=== PATIENT | female | born 1955 | race African-American/Black ===

== ENCOUNTER 2017-06-27 09:27 | Outpatient (CLI) | payer MEDICARE, BC | END 2017-06-27 09:28 | disposition home or self-care (01) | LOC: BICMAMMO 09:27 | PROVIDERS: ATTEND Family Medicine | DX: Z12.31 Encounter for screening mammogram for malignant neoplasm of breast (principal) | CPT/HCPCS: 77063; 77067 ==

== ENCOUNTER 2017-07-09 07:44 | Outpatient (CLI) | payer MEDICARE, BC | END 2017-07-09 07:45 | disposition home or self-care (01) | LOC: BICULT 07:44 | PROVIDERS: ATTEND Family Medicine | DX: R92.8 Other abnormal and inconclusive findings on diagnostic imaging of breast (principal) ==

== ENCOUNTER 2019-02-04 10:02 | Observation (INO) | payer MEDICARE ==
[2019-02-04 11:07] LABS: #Lymphocytes 1.1 thou/uL (1.20-3.40); #Monocytes 0.8 thou/uL (0.11-0.59); #Neutrophils 7.5 thou/uL (1.40-6.50); %Basophils 0.2 % (0.0-1.0); %Eosinophils 0.5 % (0.0-10.0); %Lymphocytes 11.9 % (21.0-51.0); %Monocytes 8.1 % (0.0-10.0); %Neutrophils 79.2 % (42.0-75.0); Hemoglobin 11.5 g/dL (12.0-16.0); Mean Corpuscular HGB CONC 34.2 g/dL (32.0-36.0); Mean Corpuscular Hemoglobin 33.1 pg (27.0-31.0); Mean Corpuscular Volume 96.7 fL (78.0-98.0); Platelet Count 361 thou/uL (130-400); RBC Distribution Width 11.7 % (11.5-14.5); Red Blood Cell (RBC) Count 3.49 mill/uL (4.20-5.40); White Blood Cell (WBC) Count 9.4 thou/uL (4.8-10.8)
[2019-02-04 11:16] LABS: ALT (SGPT) 17 U/L (8-55); AST (SGOT) 53 U/L (5-34); Albumin 3.6 g/dL (3.4-4.8); Alkaline Phosphatase 121 U/L (40-110); Anion Gap 20 mmol/L (10-20); BUN (Urea Nitrogen) 8 mg/dL (9.8-20.1); Bilirubin, Total 0.8 mg/dL (0.2-1.2); Calc. Creatinine Clearance 0 mL/min (70-130); Carbon Dioxide 28 mmol/L (23-31); Chloride 92 mmol/L (98-107); Estimated GFR-MDRD 79; Globulin 3.4 g/dL (2.4-3.5); Glucose 98 mg/dL (80-115); Sodium 138 mmol/L (136-145)
[2019-02-04 11:23] LABS: Potassium 2.4 mmol/L (3.5-5.1)
--- NOTE | 2019-02-04 11:48 | RAD ---
EXAM: Chest one view: HISTORY: Syncope COMPARISON: 06/20/2015 FINDINGS: Heart size: Minimally enlarged. Lungs: Clear of acute process. No evidence for pneumonia, pleural effusion, acute edema, or pneumothorax, or other significant acute process. IMPRESSION: No significant acute intrathoracic disease. Stable exam.
[2019-02-04] MEDS ORDERED: Potassium Chloride 20 MEQ TAB ONE (12:33)
[2019-02-04] MEDS ORDERED: Magnesium 2 GM/50 ML BAG (IN WATER) ONE (12:33)
[2019-02-04] MEDS ORDERED: Potassium Chloride 40 MEQ in Sodium Chloride 0.9% 250 ML 250 ML IVPB SCH (12:45)
[2019-02-04] MEDS ORDERED: Acetaminophen 325 MG TAB PO PRN (14:04)
[2019-02-04] MEDS ORDERED: Ondansetron ODT 4 MG TAB PO PRN (14:04)
[2019-02-04] MEDS ORDERED: Ondansetron PF 4 MG/2 ML Vial IVP PRN (14:04)
[2019-02-04] MEDS ORDERED: Aspirin 81 mg Enteric Coated Tablet PO SCH (14:15)
--- NOTE | 2019-02-04 15:08 | CT ---
CT Brain WO Con: 02/04/2019 2:35 PM CLINICAL HISTORY: Syncope, collapse. COMPARISON: None. FINDINGS: Hemorrhage: None. Ventricular system: Normal in size and morphology for the patient's age. Cerebral parenchyma: Normal Midline shift: None. Mass: No mass effect. Calvarium: Normal. Visualized Paranasal sinuses: Clear. IMPRESSION: No acute intracranial abnormalities.
[2019-02-04 15:21] LABS: Bacteria/HPF 2+ HPF (None Seen); Bilirubin Negative (Negative); Blood, Urine Negative (Negative); Clarity Turbid (Clear); Glucose, Urine (Dipstick) Normal (Negative); Leukocyte 500 Leu/uL (Negative); Nitrite Negative (Negative); Protein, Urine (Dipstick) 30 mg/dL (Neg-Trace); WBC/HPF 21-50 HPF (0-3)
[2019-02-04 15:31] LABS: Yeast-Budding None Seen HPF (None Seen)
[2019-02-04 15:42] VITALS: BMI 33.0
[2019-02-04 15:51] LABS: Troponin I Less than 0.010 ng/mL (< 0.028)
--- NOTE | 2019-02-04 16:07 | HP ---
PRIMARY CARE PHYSICIAN: Dr. Mark Min. CHIEF COMPLAINT: Syncope and collapse. HISTORY OF PRESENT ILLNESS: A 63-year-old female with past medical history significant for hypertension, hyperlipidemia, tobacco abuse disorder, who presents to the ER due to complaint of syncope and collapse. The patient reportedly bent over to get something from her fridge and subsequently fell backwards. She reportedly felt lightheadedness prior to passing out. She also admitted to intermittent orthostatic dizziness prior to the episode. The patient is accompanied by her sisters who told me in confidence that the patient has been drinking way lot for several years and barely eats. The patient herself admitted to poor oral intake due to easy fullness. She also admitted to drinking at least 10 whiskey drinks daily. She admitted to frequent urination, but denied nausea, vomiting, hematemesis, hematochezia, change in bowel habit, hematuria, abdominal pain, chest pain, palpitations, fever, chills, or cough. She reported weight loss of about 30 pounds in the last one year, dropping from her usual 257 pounds to 222. She admitted to bilateral lower extremity edema, which has improved currently. She denied problems swallowing or regurgitation or pain with swallowing. The patient was recently treated in December 2018 for urinary tract infection with cefdinir, which she has completed. She admitted to headache and some dizziness, but denied visual changes or focal weakness or gait instability. PAST MEDICAL HISTORY: 1. Hypertension. 2. Hyperlipidemia. 3. Anxiety with depression. 4. Chronic alcohol abuse. 5. Degenerative joint disease. 6. Obstructive sleep apnea. 7. Seasonal allergy. 8. Chronic maxillary sinusitis. 9. Peripheral neuropathy. 10. Peripheral vascular disease. PAST SURGICAL HISTORY: 1. Left hip replacement. 2. Left knee arthroscopy. 3. section. FAMILY HISTORY: Significant for heart disease and hypertension in mother. Sister had diabetes and kidney disease. Uncle had lung cancer. SOCIAL HISTORY: The patient lives alone. The sisters live around her. She drinks heavily at least 10 whiskey drinks per day for a long period. Denied smoking. There is history of tobacco chewing. The patient wants to be full code. Daughter is the surrogate decision maker. ALLERGIES: 1. BETA CHAO SAID TO CAUSE RASH. 2. HYDROCHLOROTHIAZIDE. CURRENT HOME MEDICATIONS: 1. Aspirin 81 mg p.o. daily. 2. Lasix 40 mg daily as needed. 3. Flonase 2 sprays to both nose daily. 4. Clonidine 0.1 mg daily in the morning. 5. Sertraline 50 mg once a day. 6. Losartan 100 mg p.o. daily. 7. Amlodipine 5 mg once a day at bedtime. 8. Simvastatin 40 mg once daily in the evening. REVIEW OF SYSTEMS: A 12-point review of system performed was negative other than pertinent positives and negatives included in the history of present illness. PHYSICAL EXAMINATION: VITAL SIGNS: Initial vitals on presentation to the ER showed BP 133/60, pulse 99, respiratory rate 18, temperature 98.1, pain 5/10, SpO2 99% on room air. Most current vitals showed BP 127/73, pulse 89, respiratory rate 19, temperature 98.2, pain 0/10, SpO2 97% on room air. GENERAL: Female, in no obvious distress. Afebrile. Anicteric. Acyanotic. HEENT: Normocephalic, atraumatic. Oral mucosa is moist. NECK: Supple. Nontender with good range of motion. No obvious masses or lymphadenopathy appreciated. CARDIOVASCULAR: Regular rhythm and rate with normal. heart sounds 1 and 2. RESPIRATORY: Fair air entry bilaterally with no crackle or rhonchi or use of accessory muscles. GI: Full, obese, soft with mild epigastric and bilateral lower quadrant tenderness. Bowel sound is normoactive. EXTREMITIES: Mild bilateral leg edema noted. No erythema or bruise is noted. BOOM BOSS: Conscious, alert, oriented x3 with appropriate mental status. Cranial nerves 2 through 12 are grossly intact. The patient moves all extremities with symmetric power. Sensation is grossly normal to gross touch. DIAGNOSTIC DATA: CBC showed WBC count of 9.4, hemoglobin of 18.5, MCV of 96.7, platelet of 361. Neutrophil count is 79% while lymphocyte count is 11.9. CMP showed sodium 138, potassium 2.4, chloride 92, CO2 of 28, BUN 8, anion gap 20, creatinine 0.87, glucose 98, calcium 9.0, magnesium 1.8, total bilirubin 0.8, AST 53, ALT 17, alkaline phosphatase 121, total protein 7.0, albumin 3.6, globulin 3.4. Initial troponin is less than 0.010. EKG showed normal sinus rhythm with rate of 90. No obvious ST elevation was appreciated. There is also no obvious T-wave abnormalities. Chest x-ray performed today showed minimally enlarged heart size with clear lungs. There is no evidence of pneumonia, pleural effusion, edema, or pneumothorax. ASSESSMENT: 1. Syncope and collapse. This is felt to be vasovagal and/or orthostatic syncope. The patient with chronic alcohol abuse, admitted to intermittent dizziness especially on standing. She is also on diuretic and admitted urinary frequency. Oral intake has been minimal. 2. Severe hypokalemia: Due to poor oral intake, diuretic therapy and alcohol-induced diuresis. 3. Chronic alcohol abuse with high risk for withdrawal symptoms. 4. Unintentional weight loss of about 30 pounds in the last one year: Due to poor oral intake and chronic alcohol abuse. 5. Malnutrition: Due to alcohol abuse and poor oral intake. 6. Bilateral leg edema: The patient may have chronic diastolic heart failure given longstanding history of hypertension. 7. Hypertension. 8. Hyperlipidemia. 9. Easy fascitis: Most likely due to alcohol abuse. Occult neoplasm is a concern given weight loss. PLAN: 1. Replete serum potassium with potassium chloride. 2. We will also start magnesium supplementation. 3. Dietary rehabilitation will be commenced. We will also consult dietitian. 4. We will rule out acute myocardial infarction with serial troponin. 5. We will also get carotid Doppler as well as echocardiogram. 6. We will also get orthostatic vitals. The patient on sitting up from lying position was noted to have acute increase in heart rate from 80s to 120s. We will start gentle IV fluid therapy as the patient is deemed to be volume contracted. 7. We will also get CT scan of the head given trauma to rule out acute brain injury or trauma. We will repeat CMP and CBC in the morning. 8. We will also start alcohol withdrawal protocol. 9. We will start multivitamin, folic acid and thiamine supplementation. 10. DVT prophylaxis with Lovenox will be commenced as well as GI bleeding prophylaxis. 11. Code status: Full code. The patient's daughter Pebbles is the surrogate decision maker. Job ID: [id number]
[2019-02-04] MEDS: Lactated Ringer's 1,000 ML IV SCH ×2 (16:50→21:48)
[2019-02-04] MEDS: Potassium Chloride 20 MEQ TAB PO SCH ×2 (16:50→21:48)
--- NOTE | 2019-02-04 18:32 | ULT ---
CAROTID DOPPLER: 02/04/19 PROVIDED CLINICAL HISTORY: Syncope. FINDINGS: Miller scale and color Doppler sonography with spectral analysis was performed of the extracranial renee tid system. There is no evidence for a hemodynamically significant internal carotid artery stenosis b y peak systolic velocity or ratio criteria. The vertebral arteries are not discretely identified. IMPRESSION: No sonographic evidence for a hemodynamically significant internal carotid artery stenosis. POS: ABI
[2019-02-04 21:40] LABS: Troponin I 0.033 ng/mL (< 0.028)
[2019-02-04] MEDS: Famotidine 20 MG TAB PO SCH (21:48)
[2019-02-04] MEDS: Atorvastatin Calcium 20 MG TAB PO SCH (21:48)
[2019-02-04] MEDS: Famotidine/PF 20 mg/2ml Vial SLOW IVP SCH (21:48)
[2019-02-05] MEDS: Potassium Chloride 20 MEQ TAB PO SCH (03:43)
[2019-02-05 06:51] LABS: #Eosinphils 0.1 thou/uL (0.0-0.7); #Lymphocytes 1.3 thou/uL (1.20-3.40); #Monocytes 0.5 thou/uL (0.11-0.59); %Basophils 0.3 % (0.0-1.0); %Eosinophils 1.2 % (0.0-10.0); %Lymphocytes 22.3 % (21.0-51.0); %Monocytes 7.9 % (0.0-10.0); %Neutrophils 68.3 % (42.0-75.0); Hemoglobin 9.8 g/dL (12.0-16.0); Mean Corpuscular HGB CONC 34.8 g/dL (32.0-36.0); Mean Corpuscular Hemoglobin 34.4 pg (27.0-31.0); Mean Platelet Volume 6.6 fL (7.4-10.4); Platelet Count 272 thou/uL (130-400); RBC Distribution Width 11.8 % (11.5-14.5); Red Blood Cell (RBC) Count 2.85 mill/uL (4.20-5.40); White Blood Cell (WBC) Count 5.9 thou/uL (4.8-10.8)
[2019-02-05 07:13] LABS: ALT (SGPT) 11 U/L (8-55); AST (SGOT) 41 U/L (5-34); Albumin 2.7 g/dL (3.4-4.8); Alkaline Phosphatase 90 U/L (40-110); Anion Gap 15 mmol/L (10-20); BUN (Urea Nitrogen) 8 mg/dL (9.8-20.1); Bilirubin, Total 0.6 mg/dL (0.2-1.2); Calc. Creatinine Clearance 116 mL/min (70-130); Carbon Dioxide 26 mmol/L (23-31); Chloride 100 mmol/L (98-107); Estimated GFR-MDRD Greater than 90; Glucose 102 mg/dL (80-115); Potassium 3.2 mmol/L (3.5-5.1); Protein, Total 5.7 g/dL (6.0-8.3); Sodium 138 mmol/L (136-145)
[2019-02-05] MEDS: Enoxaparin Sodium 40 MG/0.4 ML SYRINGE SC SCH (08:43)
[2019-02-05] MEDS: Folic Acid 1 MG TAB PO SCH (08:44)
[2019-02-05] MEDS: Multivitamin W/ Minerals 1 TAB PO SCH (08:44)
[2019-02-05] MEDS: Aspirin 81 mg Enteric Coated Tablet PO SCH (08:44)
[2019-02-05] MEDS: Thiamine 100 MG TAB PO SCH (08:45)
[2019-02-05] MEDS: Cefdinir 300 MG CAP PO SCH ×2 (08:45→21:01)
[2019-02-05] MEDS: Famotidine 20 MG TAB PO SCH ×2 (08:47→21:01)
[2019-02-05] MEDS: Famotidine/PF 20 mg/2ml Vial SLOW IVP SCH ×2 (08:53→21:04)
[2019-02-05] MEDS ORDERED: Prevnar 13-Val Conj/PF 0.5 ML SYRINGE IM ONE (09:00)
[2019-02-05] MEDS ORDERED: cefTRIAXone\\ROCEPHIN 1 GM in Sodium Chloride 0.9% 100 ML IVPB SCH (09:00)
[2019-02-05] MEDS ORDERED: Potassium Chloride 20 MEQ TAB PO SCH (09:00)
[2019-02-05] MEDS ORDERED: FLU VACC TS2019-20(65YR UP)/PF 180 MCG/0.5 ML SYRINGE IM ONE (09:00)
[2019-02-05 10:01] LABS: Troponin I Less than 0.010 ng/mL (< 0.028)
[2019-02-05] MEDS: Lactated Ringer's 1,000 ML IV SCH (11:29)
[2019-02-05] MEDS: Multivitamins, Adult 10 ML, Folic Acid 1 MG, Thiamine HCl 100 MG in Dextrose 5 %-0.45 %... IV SCH (11:29)
[2019-02-05] MEDS: Atorvastatin Calcium 20 MG TAB PO SCH (21:01)
[2019-02-06 08:00] VITALS: TEMP 98.5
[2019-02-06 08:01] VITALS: BP 126/72
[2019-02-06] MEDS ORDERED: Ergocalciferol 1.25 MG(50,000 UNITS) CAP PO SCH (09:00)
[2019-02-06] MEDS: Aspirin 81 mg Enteric Coated Tablet PO SCH (09:53)
[2019-02-06] MEDS: Multivitamin W/ Minerals 1 TAB PO SCH (09:53)
[2019-02-06] MEDS: Cefdinir 300 MG CAP PO SCH (09:53)
[2019-02-06] MEDS: Famotidine 20 MG TAB PO SCH (09:53)
[2019-02-06] MEDS: Folic Acid 1 MG TAB PO SCH (09:53)
[2019-02-06] MEDS: Enoxaparin Sodium 40 MG/0.4 ML SYRINGE SC SCH (09:54)
[2019-02-06] MEDS: Famotidine/PF 20 mg/2ml Vial SLOW IVP SCH (09:54)
[2019-02-06] MEDS: Thiamine 100 MG TAB PO SCH (09:54)
[2019-02-06] MEDS: Multivitamins, Adult 10 ML, Folic Acid 1 MG, Thiamine HCl 100 MG in Dextrose 5 %-0.45 %... IV SCH (10:31)
--- NOTE | 2019-02-06 10:49 | PDOC.HOSPP ---
- Subjective Encounter Date: 02/05/19 Encounter Time: 10:30 Subjective: pt up in bed wants to go home. - Objective Vital Signs & Weight: Vital Signs (12 hours) Temp Pulse Resp BP BP BP BP 02/06/19 08:30 126/72 02/06/19 08:00 120 H 147/73 H 126/72 02/06/19 07:59 98.5 F 91 20 02/06/19 04:00 97.8 F 88 16 144/55 H 144/55 H 02/05/19 23:40 98.5 F 89 16 130/60 130/60 BP Pulse Ox 02/06/19 08:30 02/06/19 08:00 02/06/19 07:59 139/67 90 L 02/06/19 04:00 97 02/05/19 23:40 93 L Weight Weight 210 lb 11.2 oz I&O: 02/05/19 02/06/19 02/07/19 06:59 06:59 06:59 Intake Total 1790 1838 240 Output Total 1400 1500 Balance 390 338 240 Result Diagrams: 02/05/19 06:33 02/05/19 06:33 Hospitalist ROS - Review of Systems Respiratory: denies: cough, dry, shortness of breath, hemoptysis, SOB with excertion, pleuritic pain, sputum, wheezing, other Cardiovascular: denies: chest pain, palpitations, orthopnea, paroxysmal noc. dyspnea, edema, light headedness, other Gastrointestinal: denies: nausea, vomiting, abdominal pain, diarrhea, constipation, melena, hematochezia, other - Medication Medications: Active Medications Generic Name Dose Route Start Last Admin Trade Name Endyq PRN Reason Stop Dose Admin Aspirin 81 mg 02/05/19 09:00 02/06/19 09:53 Ecotrin PO 81 mg DAILY CLAIRE Administration Atorvastatin Calcium 20 mg 02/04/19 21:00 02/05/19 21:01 Lipitor PO 20 mg HS CLAIRE Administration Cefdinir 300 mg 02/05/19 09:00 02/06/19 09:53 Omnicef PO 300 mg BID CLAIRE Administration Cholecalciferol 1,000 units 02/06/19 09:00 02/06/19 09:53 Vitamin D3 PO 1,000 units DAILY CLAIRE Administration Enoxaparin Sodium 40 mg 02/05/19 09:00 02/06/19 09:54 Lovenox SC 40 mg 0900 CLAIRE Administration Ergocalciferol 1.25 mg 02/06/19 09:00 02/06/19 09:53 Drisdol PO 1.25 mg Q7DAYS CLAIRE Administration Famotidine 20 mg 02/04/19 21:00 02/06/19 09:54 Pepcid SLOW IVP Not Given Q12HR CLAIRE Famotidine 20 mg 02/04/19 21:00 02/06/19 09:53 Pepcid PO 20 mg BID CLAIRE Administration Folic Acid 1 mg 02/05/19 09:00 02/06/19 09:53 Folvite PO 1 mg DAILY CLAIRE Administration Multivitamins 10 ml/ Folic 1,011.2 mls @ 100 mls/hr 02/05/19 10:30 02/06/19 10:31 Acid 1 mg/ Thiamine HCl 100 mg IV Not Given / Dextrose/Sodium Chloride Q24HR CLAIRE Iron/Minerals/Multivitamins 1 tab 02/05/19 09:00 02/06/19 09:53 Theragran M PO 1 tab DAILY CLAIRE Administration Sertraline HCl 50 mg 02/05/19 09:00 02/06/19 09:53 Zoloft PO 50 mg QAM CLAIRE Administration Thiamine HCl 100 mg 02/05/19 09:00 02/06/19 09:54 Thiamine PO 100 mg DAILY CLAIRE Administration - Exam Heart: negative: RRR, no murmur, no gallops, no rubs, normal peripheral pulses, irregular, diminshed peripheral pulses, murmur present, II/IV, III/IV Respiratory: negative: CTAB, no wheezes, no rales, no ronchi, normal chest expansion, no tachypnea, normal percussion, rales, rhonchi, tachypneic, wheezes Gastrointestinal: negative: soft, non-tender, non-distended, normal bowel sounds , no palpable masses, no hepatomegaly, no splenomegaly, no bruit, no guarding, no rigidity, tender to palpation, distended, diminished bowl sounds, voluntary guarding Hosp A/P (1) Syncope Code(s): R55 - SYNCOPE AND COLLAPSE Status: Acute (2) Alcohol abuse Code(s): F10.10 - ALCOHOL ABUSE, UNCOMPLICATED Status: Acute (3) Dysgeusia Code(s): R43.2 - PARAGEUSIA Status: Acute - Plan pt is on ASE protocol. sister at bedside concern about her dysphagia but when i talked to her she states that she does not like the taste so she does not swallow. will get speech to see her. I did tell her sister that her current issue of dysphagia has been going on for several months not new. I recommenced her to see gi as outpatient. Pt is not sucidal and i did offer her if she wants rehab information about her alcohol abuse. she is currently not interested.
--- NOTE | 2019-02-06 18:12 | DIS ---
DATE OF ADMISSION: 02/04/2019 DATE OF DISCHARGE: 02/06/2019 CHIEF COMPLAINT: Syncope. HISTORY OF PRESENT ILLNESS: The patient is a 63-year-old female, who initially presented to the hospital with syncopal episode. The patient has a history of alcohol use and has not been drinking and eating very much. She did have a CT brain, which did not show any acute abnormalities. She also had a carotid Doppler, which was normal. She also had an echocardiogram, which indicated an EF of 60% to 65% with some diastolic dysfunction and mild tricuspid and mitral regurgitation. The patient was advised against alcoholic abstinence. She understands the risks. I did offer her for some psych consulting. The patient stated that she was not interested at this moment. I also asked her to provide me her daughter's number, so I can update her. This was per conversation with the patient's sister yesterday. However, the patient did not want me to call the daughter with her medical issues. I did speak with the patient in length, the patient does feel depressed; however, she is not suicidal. She states that she likes drinking alcohol because that alcohol makes her feel good. The patient does feel that she does have a significant amount of support within the community and with her family. The patient did complain of issues with swallowing. She states that she has been having these issues for some few years, several months now. This is not new. She has been only drinking Ensure. Upon further evaluation, the patient states that she has tasting issues, which is preventing her from swallowing the food. However, she is able to drink fluids without any problems and she was able to eat a few bites of meat loaf yesterday. She is able to swallow. She had no problems swallowing. It is just after talking with her, it seems more that she does not like the taste, which causes her inability to swallow. I also got Speech to see and evaluate her, who did not think any issues with oropharyngeal. I have recommended her to go to a GI, I have provided her with a cement contractor number to make an appointment for that. She has had some weight loss. However, as this could be attributed to alcohol, but regardless, she does need to follow up and get an endoscopy. She also was advised to follow up with her primary care. HOME MEDICATIONS: 1. Cefdinir. 2. Folic acid. 3. Vitamin D3. 4. Thiamine. 5. Losartan 100 mg daily. 6. Sertraline 50 mg daily. 7. Simvastatin 40 mg daily. 8. Norvasc 5 mg daily. 9. Aspirin 81 mg daily. 10. Lasix 40 mg daily. 11. Clonidine 0.1 p.o. daily. PHYSICAL EXAMINATION: VITAL SIGNS: Temperature of 98.5, 91, 20, 97% on room air, and 126/72. GENERAL: She is awake, alert, and oriented x3. There is no pain or distress. HEENT: Normocephalic and atraumatic. No lymphadenopathy noted. Pupils are equal and reactive to light. CVS: S1 and S2 present. No murmurs, rubs, or gallops. Again, she will be discharged home. She will follow up with the primary. DISCHARGE DIAGNOSES: 1. Syncope. 2. Low vitamin D level. 3. Alcohol abuse. 4. Dysphagia, most likely secondary to dysgeusia (abnormal taste). Job ID: [id number]
--- NOTE | 2019-02-07 14:42 | EKG ---
Test Reason : Blood Pressure : / mmHG Vent. Rate : 090 BPM Atrial Rate : 090 BPM P-R Int : 138 ms QRS Dur : 080 ms QT Int : 380 ms P-R-T Axes : 020 009 026 degrees QTc Int : 464 ms Normal sinus rhythm Possible Left atrial enlargement Inferior infarct , age undetermined Abnormal ECG Confirmed by EDWIN HENNING DO ([id number]), editor [place] ([id number]) on 02/07/2019 2:42:12 PM Referred By: Confirmed By:EDWIN HENNING DO
== END 2019-02-06 11:40 | disposition home or self-care (01) ==
LOC: ERS 10:02 → 2SW 15:40
PROVIDERS: ADMIT Internal Medicine Nephrology; ATTEND Internal Medicine Nephrology
DX: R55 Syncope and collapse (principal); F10.10 Alcohol abuse, uncomplicated; I10 Essential (primary) hypertension; E78.5 Hyperlipidemia, unspecified; E87.6 Hypokalemia; R63.4 Abnormal weight loss; E46 Unspecified protein-calorie malnutrition; F41.8 Other specified anxiety disorders; F32.9 Major depressive disorder, single episode, unspecified; M19.90 Unspecified osteoarthritis, unspecified site; G47.33 Obstructive sleep apnea (adult) (pediatric); F17.220 Nicotine dependence, chewing tobacco, uncomplicated; I73.9 Peripheral vascular disease, unspecified; G62.9 Polyneuropathy, unspecified; R60.0 Localized edema; R13.10 Dysphagia, unspecified; Z68.33 Body mass index [BMI] 33.0-33.9, adult; Z79.82 Long term (current) use of aspirin; Z79.899 Other long term (current) drug therapy; Z88.8 Allergy status to other drugs, medicaments and biological substances; Z96.642 Presence of left artificial hip joint
CPT/HCPCS: 36415; 36416; 70450; 71045; 80053; 81003; 81015; 82306; 82607; 83735; 84484; 85025; 87077; 87086; 87186; 93005; 93306; 93880; 96361; 96365; 96366; 96367; 96372; 96375; G0378; J1650; J3411; J3475; J3480; J7042; J7050; S0028

== ENCOUNTER 2019-03-27 08:29 | Outpatient (CLI) | payer MEDICARE ==
--- NOTE | 2019-03-27 09:11 | MMO ---
Bilateral MAMMO Bilat Screen [facility]. CLINICAL HISTORY: Patient is 63 years old and is seen for screening. The patient has no family history of breast cancer. The patient has no personal history of cancer. VIEWS: The views performed were: bilateral craniocaudal with tomosynthesis; bilateral mediolateral oblique with tomosynthesis; and left craniocaudal. FILMS COMPARED: The present examination has been compared to prior imaging studies performed at [facility] on 06/27/2017, at [facility] on 03/26/2013, and at [facility] on 03/26/2013. This study has been interpreted with the assistance of computer-aided detection. MAMMOGRAM FINDINGS: There are scattered fibroglandular densities. Finding 1: There are benign appearing calcifications seen in both breasts. Finding 2: There is an oval mass seen in the central region of the right breast. The mass was shown to be a cyst on ultrasound. There are no suspicious masses, suspicious calcifications, or new areas of architectural distortion. IMPRESSION: THERE IS NO MAMMOGRAPHIC EVIDENCE OF MALIGNANCY. A ROUTINE FOLLOW-UP MAMMOGRAM IN 1 YEAR IS RECOMMENDED. THE RESULTS OF THIS EXAM WERE SENT TO THE PATIENT. ACR BI-RADS Category 2 - Benign finding MAMMOGRAPHY NOTE: 1. A negative mammogram report should not delay a biopsy if a dominant of clinically suspicious mass is present. 2. Approximately 10% to 15% of breast cancers are not detected by mammography. 3. Adenosis and dense breasts may obscure an underlying neoplasm. Reported by: JAYLAN MO MD Electonically Signed: [id number]
== END 2019-03-27 08:30 | disposition home or self-care (01) ==
LOC: BICMAMMO 08:29
PROVIDERS: ATTEND Family Medicine
DX: Z12.31 Encounter for screening mammogram for malignant neoplasm of breast (principal)
CPT/HCPCS: 77063; 77067

== ENCOUNTER 2020-04-07 10:52 | Outpatient (CLI) | payer MEDICARE ==
--- NOTE | 2020-04-07 11:22 | MMO ---
Bilateral MAMMO Bilat Screen [facility]. CLINICAL HISTORY: Patient is 64 years old and is seen for screening. The patient has no family history of breast cancer. The patient has no personal history of cancer. VIEWS: The views performed were: bilateral craniocaudal with tomosynthesis and bilateral mediolateral oblique with tomosynthesis. FILMS COMPARED: The present examination has been compared to prior imaging studies performed at [facility] on 06/27/2017 and 03/27/2019, at [facility] on 03/26/2013, and at [facility] on 03/26/2013. This study has been interpreted with the assistance of computer-aided detection. MAMMOGRAM FINDINGS: There are scattered fibroglandular densities. There are stable benign appearing calcifications seen in both breasts. There are no suspicious masses, suspicious calcifications, or new areas of architectural distortion. IMPRESSION: THERE IS NO MAMMOGRAPHIC EVIDENCE OF MALIGNANCY. A ROUTINE FOLLOW-UP MAMMOGRAM IN 1 YEAR IS RECOMMENDED. THE RESULTS OF THIS EXAM WERE SENT TO THE PATIENT. ACR BI-RADS Category 2 - Benign finding MAMMOGRAPHY NOTE: 1. A negative mammogram report should not delay a biopsy if a dominant of clinically suspicious mass is present. 2. Approximately 10% to 15% of breast cancers are not detected by mammography. 3. Adenosis and dense breasts may obscure an underlying neoplasm. Reported by: WILLAM UPTON MD Electonically Signed: [id number]
== END 2020-04-07 10:53 | disposition home or self-care (01) ==
LOC: BICMAMMO 10:52
PROVIDERS: ATTEND Family Medicine
DX: Z12.31 Encounter for screening mammogram for malignant neoplasm of breast (principal)
CPT/HCPCS: 77063; 77067

== ENCOUNTER 2020-04-08 09:20 | Emergency (ER) | payer MEDICARE ==
[2020-04-08 14:01] LABS: SARS-CoV-2 MS2 Positive; SARS-CoV-2 N Gene Negative; SARS-CoV-2 S Gene Negative; SARS-CoV-2 by NAA Not Detected (NotDetected); SARS-CoV-2 orf1ab Negative
== END 2020-04-08 09:40 | disposition home or self-care (01) ==
LOC: ERS 09:20
DX: Z20.828 Contact with and (suspected) exposure to other viral communicable diseases (principal); K21.9 Gastro-esophageal reflux disease without esophagitis; I10 Essential (primary) hypertension; G47.30 Sleep apnea, unspecified; F17.220 Nicotine dependence, chewing tobacco, uncomplicated
CPT/HCPCS: 99282; U0003; 87635

== ENCOUNTER 2020-04-11 10:45 | Outpatient (CLI) | payer MEDICARE ==
--- NOTE | 2020-04-12 09:45 | RAD ---
MODIFIED BARIUM SWALLOW IN PRESENCE OF SPEECH THERAPIST: HISTORY: Dysphagia, feeding difficulties FINDINGS: No laryngeal penetration or aspiration is seen. No persistent pooling of contrast is seen in the valleculae or piriform sinuses. Please see recommendations of the speech therapist for further management.
== END 2020-04-11 10:46 | disposition home or self-care (01) ==
PROVIDERS: ATTEND Physician Assistant Medical
DX: R13.19 Other dysphagia (principal); K21.9 Gastro-esophageal reflux disease without esophagitis
CPT/HCPCS: 74230

== ENCOUNTER 2020-04-18 08:33 | Outpatient (CLI) | payer MEDICARE ==
--- NOTE | 2020-04-18 09:15 | ULT ---
Hepatic sonogram with duplex evaluation HISTORY: Abnormal liver function tests. Abdomen pain. FINDINGS: Gallbladder has a normal appearance without stone evident. Common duct is 0.5 cm. The liver is diffusely echogenic without focal mass or intrahepatic biliary dilatation. No free fluid . Spleen is 9.3 cm greatest length. Good color and spectral Doppler flow within the hepatic and splenic arteries. Portal venous flow is t owards the liver. Hepatic venous flow towards the IVC. IMPRESSION : No evidence of gallstones or biliary obstruction. Hepato-steatosis. No sonographic findings of portal venous hypertension.
== END 2020-04-18 08:34 | disposition home or self-care (01) ==
LOC: BICULT 08:33
PROVIDERS: ATTEND Physician Assistant Medical
DX: D64.9 Anemia, unspecified (principal); K59.00 Constipation, unspecified; R10.9 Unspecified abdominal pain; R13.19 Other dysphagia; R12 Heartburn; R94.5 Abnormal results of liver function studies; K76.0 Fatty (change of) liver, not elsewhere classified
CPT/HCPCS: 76705

== ENCOUNTER 2020-04-19 10:10 | Outpatient (CLI) | payer MEDICARE ==
--- NOTE | 2020-04-19 10:50 | RAD ---
XR Lumbar Spine 2 Or 3 View History: Dorsal soft tissue Comparison: None. Findings: Retained contrast throughout the colon. No acute fracture or malalignment. Chronic appearin g inferior endplate height loss of L1. No significant listhesis. Mild facet arthrosis L3-S1. Low-grade posterior L5/S1 degenerative disc space height loss. Impression: Relatively maintained lumbar spine for age. No acute osseous abnormality.
== END 2020-04-19 10:11 | disposition home or self-care (01) ==
LOC: BICRAD 10:10
PROVIDERS: ATTEND Family Medicine
DX: M54.9 Dorsalgia, unspecified (principal)
CPT/HCPCS: 72100

== ENCOUNTER 2020-06-30 09:12 | Outpatient (CLI) | payer MEDICARE ==
--- NOTE | 2020-06-30 10:00 | RAD ---
2 view chest: [06/30/2020] Comparison:04/19/2016 HISTORY: Anemia FINDINGS: There is no pneumothorax or pleural fluid and no focal consolidation or alveolar edema. Hea rt and mediastinal contours are unremarkable. There is atherosclerotic calcification of the aortic arch. IMPRESSION: No acute findings.
== END 2020-06-30 09:13 | disposition home or self-care (01) ==
LOC: BICRAD 09:12
PROVIDERS: ATTEND Family Medicine
DX: D64.9 Anemia, unspecified (principal)
CPT/HCPCS: 71046

== ENCOUNTER 2020-08-28 20:04 | Inpatient (IN) | payer MEDICARE ==
[2020-08-28 20:44] LABS: #Eosinphils 0.2 thou/uL (0.0-0.7); #Lymphocytes 1.4 thou/uL (1.20-3.40); #Monocytes 0.6 thou/uL (0.11-0.59); %Basophils 0.9 % (0.0-1.0); %Eosinophils 3.1 % (0.0-10.0); %Lymphocytes 26.3 % (21.0-51.0); %Monocytes 11.7 % (0.0-10.0); Hemoglobin 11.2 g/dL (12.0-16.0); Mean Corpuscular HGB CONC 32.8 g/dL (32.0-36.0); Mean Corpuscular Hemoglobin 33.3 pg (27.0-31.0); Mean Platelet Volume 8.3 fL (7.4-10.4); Platelet Count 271 thou/uL (130-400); RBC Distribution Width 16.8 % (11.5-14.5); Red Blood Cell (RBC) Count 3.37 mill/uL (4.20-5.40); White Blood Cell (WBC) Count 5.2 thou/uL (4.8-10.8)
[2020-08-28 21:06] LABS: ALT (SGPT) 18 U/L (8-55); AST (SGOT) 57 U/L (5-34); Albumin 3.7 g/dL (3.4-4.8); Alkaline Phosphatase 87 U/L (40-110); Anion Gap 13 mmol/L (10-20); BUN (Urea Nitrogen) 11 mg/dL (9.8-20.1); Bilirubin, Total 0.7 mg/dL (0.2-1.2); Calc. Creatinine Clearance 0 mL/min (70-130); Calcium 10.2 mg/dL (7.8-10.44); Carbon Dioxide 24 mmol/L (23-31); Chloride 106 mmol/L (98-107); Globulin 3.4 g/dL (2.4-3.5); Glucose 115 mg/dL (80-115); Magnesium 1.7 mg/dL (1.6-2.6); Potassium 3.2 mmol/L (3.5-5.1); Protein, Total 7.1 g/dL (5.8-8.1); Sodium 140 mmol/L (136-145)
[2020-08-28 21:48] LABS: Bacteria/HPF 1+ HPF (None Seen); Bilirubin Negative (Negative); Blood, Urine Negative (Negative); Clarity Turbid (Clear); Glucose, Urine (Dipstick) Normal (Negative); Ketone, Urine Negative (Negative); Leukocyte 75 Leu/uL (Negative); Nitrite Negative (Negative); Protein, Urine (Dipstick) 20 mg/dL (Neg-Trace); RBC/HPF 0-3 HPF (0-3); Specific Gravity, Urine 1.022 (1.002-1.036); Squamous Epithelial 0-3 HPF (0-3); Urobilinogen Normal mg/dL (Less than 2)
[2020-08-28] MEDS ORDERED: Thiamine HCl 200 MG/2 ML VIAL SLOW IVP SCH (22:45)
[2020-08-28] MEDS ORDERED: Aspirin 325 MG TAB ONE (23:53)
[2020-08-29 00:40] VITALS: BMI 32.4
[2020-08-29] MEDS ORDERED: Electrolyte Replacement Protocol 1 EACH FS SCH (01:00)
[2020-08-29] MEDS ORDERED: Acetaminophen 325 MG TAB PO PRN (01:00)
[2020-08-29] MEDS ORDERED: Magnesium 2 GM/50 ML 2 GM in Premix Bag 1 BAG IVPB SCH (01:00)
[2020-08-29] MEDS ORDERED: HYDROcodone/Acetaminophen 5/325 mg Tablet PO PRN (01:00)
[2020-08-29] MEDS ORDERED: Diazepam 5 MG TAB PO PRN (01:27)
[2020-08-29] MEDS ORDERED: Potassium Chloride 20 MEQ TAB PO SCH ×2 (01:30→08:45)
[2020-08-29] MEDS ORDERED: Diazepam 5 MG TAB PO SCH (01:30)
[2020-08-29] MEDS: cefTRIAXone\\ROCEPHIN 1 GM in Sodium Chloride 0.9% 100 ML IVPB SCH (03:33)
[2020-08-29 04:57] LABS: SARS-CoV-2 PCR by NAA Not Detected (NotDetected)
[2020-08-29 06:56] LABS: #Eosinphils 0.1 thou/uL (0.0-0.7); #Lymphocytes 1.4 thou/uL (1.20-3.40); #Monocytes 0.5 thou/uL (0.11-0.59); #Neutrophils 2.2 thou/uL (1.40-6.50); %Basophils 0.3 % (0.0-1.0); %Eosinophils 3.3 % (0.0-10.0); %Lymphocytes 33.4 % (21.0-51.0); %Monocytes 12.1 % (0.0-10.0); %Neutrophils 50.8 % (42.0-75.0); Mean Corpuscular HGB CONC 31.5 g/dL (32.0-36.0); Mean Corpuscular Hemoglobin 32.1 pg (27.0-31.0); Mean Platelet Volume 8.4 fL (7.4-10.4); Platelet Count 272 thou/uL (130-400); RBC Distribution Width 16.7 % (11.5-14.5); Red Blood Cell (RBC) Count 3.41 mill/uL (4.20-5.40); White Blood Cell (WBC) Count 4.3 thou/uL (4.8-10.8)
[2020-08-29 07:22] LABS: Anion Gap 14 mmol/L (10-20); BUN (Urea Nitrogen) 9 mg/dL (9.8-20.1); CK (CPK) 52 U/L (29-168); Calc. Creatinine Clearance 128 mL/min (70-130); Calcium 9.4 mg/dL (7.8-10.44); Carbon Dioxide 25 mmol/L (23-31); Chloride 106 mmol/L (98-107); Glucose 115 mg/dL (80-115); Magnesium 2.2 mg/dL (1.6-2.6); Potassium 3.1 mmol/L (3.5-5.1); Sodium 142 mmol/L (136-145)
[2020-08-29] MEDS: Sodium Chloride 0.9% 1,000 ML IV SCH ×2 (09:29→17:58)
[2020-08-29] MEDS: Enoxaparin Sodium 40 MG/0.4 ML SYRINGE SC SCH (09:30)
[2020-08-29] MEDS: Folic Acid 1 MG TAB PO SCH (09:30)
[2020-08-29] MEDS: Multivitamin W/ Minerals 1 TAB PO SCH (09:30)
[2020-08-29] MEDS: cloNIDine 0.1 MG TAB PO SCH ×2 (09:32→20:55)
[2020-08-29] MEDS: Amlodipine 5 MG TAB PO SCH ×2 (09:34→09:38)
[2020-08-29] MEDS: Multivitamins, Adult 10 ML, Folic Acid 1 MG in Dextrose 5 %-0.45 % NaCl 1,000 ML IV SCH (13:09)
[2020-08-29] MEDS: Aspirin 81 mg Enteric Coated Tablet PO SCH (20:55)
[2020-08-30] MEDS: cefTRIAXone\\ROCEPHIN 1 GM in Sodium Chloride 0.9% 100 ML IVPB SCH (03:10)
[2020-08-30] MEDS ORDERED: Diazepam 5 MG TAB PO PRN (04:00)
[2020-08-30] MEDS: Sodium Chloride 0.9% 1,000 ML IV SCH ×2 (10:02→20:41)
[2020-08-30] MEDS: Magnesium Oxide 400 MG TAB PO SCH (10:02)
[2020-08-30] MEDS: Thiamine 100 MG TAB PO SCH (10:03)
[2020-08-30] MEDS: Folic Acid 1 MG TAB PO SCH (10:03)
[2020-08-30] MEDS: Amlodipine 5 MG TAB PO SCH (10:03)
[2020-08-30] MEDS: Multivitamin W/ Minerals 1 TAB PO SCH (10:03)
[2020-08-30] MEDS: Enoxaparin Sodium 40 MG/0.4 ML SYRINGE SC SCH (10:05)
[2020-08-30] MEDS: cloNIDine 0.1 MG TAB PO SCH ×2 (10:05→20:42)
[2020-08-30] MEDS: Multivitamins, Adult 10 ML, Folic Acid 1 MG in Dextrose 5 %-0.45 % NaCl 1,000 ML IV SCH (10:15)
[2020-08-30] MEDS ORDERED: Potassium Chloride 20 MEQ TAB PO SCH (15:45)
[2020-08-30 17:27] LABS: Free T4 (Free Thyroxine) 0.86 ng/dL (0.70-1.48); Thyroid Stimulating Hormone 2.7429 uIU/mL (0.35-4.94)
[2020-08-30] MEDS: Aspirin 81 mg Enteric Coated Tablet PO SCH (20:42)
[2020-08-31] MEDS: Sodium Chloride 0.9% 1,000 ML IV SCH (02:31)
[2020-08-31] MEDS: Enoxaparin Sodium 40 MG/0.4 ML SYRINGE SC SCH (08:48)
[2020-08-31] MEDS: Multivitamin W/ Minerals 1 TAB PO SCH (08:48)
[2020-08-31] MEDS: Thiamine 100 MG TAB PO SCH (08:49)
[2020-08-31] MEDS: Potassium Chloride 20 MEQ TAB PO SCH (08:49)
[2020-08-31] MEDS: Folic Acid 1 MG TAB PO SCH (08:49)
[2020-08-31] MEDS: Amlodipine 5 MG TAB PO SCH (08:50)
[2020-08-31] MEDS: Cholecalciferol 1,000 UNITS (25 MCG) TAB PO SCH (08:50)
[2020-08-31] MEDS: cloNIDine 0.1 MG TAB PO SCH ×2 (08:50→20:31)
[2020-08-31] MEDS: Losartan 25 MG TAB PO SCH (08:50)
[2020-08-31] MEDS: Magnesium Oxide 400 MG TAB PO SCH (08:50)
[2020-08-31] MEDS: Multivitamins, Adult 10 ML, Folic Acid 1 MG in Dextrose 5 %-0.45 % NaCl 1,000 ML IV SCH (09:38)
[2020-08-31] MEDS ORDERED: Labetalol HCl 100 MG/20 ML VIAL SLOW IVP PRN (16:03)
[2020-08-31] MEDS ORDERED: hydrALAZINE 20 MG/ML VIAL SLOW IVP PRN (16:03)
[2020-08-31] MEDS: Aspirin 81 mg Enteric Coated Tablet PO SCH (20:30)
[2020-08-31] MEDS ORDERED: Atorvastatin Calcium 20 MG TAB PO SCH (21:00)
[2020-09-01] MEDS: Multivitamins, Adult 10 ML, Folic Acid 1 MG in Dextrose 5 %-0.45 % NaCl 1,000 ML IV SCH (10:43)
[2020-09-01] MEDS: Amlodipine 5 MG TAB PO SCH (10:43)
[2020-09-01] MEDS: Thiamine 100 MG TAB PO SCH (10:43)
[2020-09-01] MEDS: Potassium Chloride 20 MEQ TAB PO SCH (10:43)
[2020-09-01] MEDS: cloNIDine 0.1 MG TAB PO SCH (10:49)
[2020-09-01] MEDS: Multivitamin W/ Minerals 1 TAB PO SCH (10:50)
[2020-09-01] MEDS: Losartan 25 MG TAB PO SCH (10:50)
[2020-09-01] MEDS: Cholecalciferol 1,000 UNITS (25 MCG) TAB PO SCH (10:51)
[2020-09-01] MEDS: Magnesium Oxide 400 MG TAB PO SCH (10:51)
[2020-09-01] MEDS: Enoxaparin Sodium 40 MG/0.4 ML SYRINGE SC SCH (10:51)
[2020-09-01] MEDS: Folic Acid 1 MG TAB PO SCH (10:51)
[2020-09-01 11:36] VITALS: TEMP 98.2
[2020-09-01 15:26] VITALS: BP 174/83
[2020-09-02] MEDS ORDERED: Polyethylene Glycol 3350 17 GM Packet PO SCH (09:00)
== END 2020-09-01 16:30 | disposition home health service (06) | DRG 57 ==
LOC: ERS 20:04 → 2SE 23:10 → OBSVTOIN 08-30 15:38
PROVIDERS: ADMIT Student in an Organized Health Care Education/Training Program; ATTEND Internal Medicine
DX: G31.2 Degeneration of nervous system due to alcohol (principal); G93.40 Encephalopathy, unspecified; F10.239 Alcohol dependence with withdrawal, unspecified; N39.0 Urinary tract infection, site not specified; G62.1 Alcoholic polyneuropathy; Z20.822 Contact with and (suspected) exposure to COVID-19; I10 Essential (primary) hypertension; E78.5 Hyperlipidemia, unspecified; E55.9 Vitamin D deficiency, unspecified; N32.81 Overactive bladder; Z96.642 Presence of left artificial hip joint; F17.220 Nicotine dependence, chewing tobacco, uncomplicated; G93.89 Other specified disorders of brain; K21.9 Gastro-esophageal reflux disease without esophagitis; E78.00 Pure hypercholesterolemia, unspecified; F41.9 Anxiety disorder, unspecified; F32.9 Major depressive disorder, single episode, unspecified; Z88.8 Allergy status to other drugs, medicaments and biological substances; Z79.899 Other long term (current) drug therapy
CPT/HCPCS: 36415; 51701; 70450; 70551; 72148; 80048; 80053; 81003; 81015; 82533; 82550; 83735; 84439; 84443; 84481; 84484; 85025; 87086; 87635; 93005; 94760; 95712; 95819; 95957; 96365; 96372; 96375; G0378; J0360; J0696; J1650; J3411; J3475; J3490; J7042; U0003; U0005

== ENCOUNTER 2020-10-10 10:54 | Outpatient (CLI) | payer MEDICARE | END 2020-10-10 10:55 | disposition home or self-care (01) | LOC: BICRAD 10:54 | PROVIDERS: ATTEND Surgery | DX: S32.010D Wedge compression fracture of first lumbar vertebra, subsequent encounter for fracture with routine healing (principal) | CPT/HCPCS: 72100 ==

== ENCOUNTER 2020-12-25 22:02 | Inpatient (IN) | payer MEDICARE ==
[2020-12-25] MEDS ORDERED: Lorazepam 2 MG/ML VIAL ONE (23:09)
[2020-12-25] MEDS ORDERED: chlordiazePOXIDE HCl 25 MG CAP PO SCH (23:15)
[2020-12-25] MEDS ORDERED: Multivitamins, Adult 10 ML, Thiamine HCl 100 MG, Folic Acid 1 MG in Dextrose 5 %-0.45 %... IV SCH (23:30)
[2020-12-25] MEDS ORDERED: chlordiazePOXIDE HCl 25 MG CAP ONE (23:33)
[2020-12-26 02:33] VITALS: BMI 34.6
[2020-12-26] MEDS ORDERED: Lorazepam 2 MG/ML VIAL SLOW IVP PRN (03:07)
[2020-12-26] MEDS ORDERED: Diazepam 5 MG TAB PO PRN (03:07)
[2020-12-26] MEDS ORDERED: Lactated Ringer's 1,000 ML IV SCH (03:15)
[2020-12-26 04:37] LABS: SARS-CoV-2 NAA Rapid Test Not Detected (NotDetected)
[2020-12-26] MEDS ORDERED: hydrALAZINE 20 MG/ML VIAL SLOW IVP PRN (05:27)
[2020-12-26] MEDS ORDERED: Ondansetron PF 4 MG/2 ML Vial IVP PRN (05:38)
[2020-12-26] MEDS ORDERED: Acetaminophen 325 MG TAB PO PRN (05:38)
[2020-12-26 06:47] LABS: #Lymphocytes 1.4 thou/uL (1.20-3.40); #Monocytes 0.7 thou/uL (0.11-0.59); #Neutrophils 3.4 thou/uL (1.40-6.50); %Basophils 0.6 % (0.0-1.0); %Eosinophils 0.7 % (0.0-10.0); %Lymphocytes 25.4 % (21.0-51.0); %Monocytes 12.3 % (0.0-10.0); %Neutrophils 60.9 % (42.0-75.0); Mean Corpuscular HGB CONC 33.9 g/dL (32.0-36.0); Mean Corpuscular Hemoglobin 33.4 pg (27.0-31.0); Mean Corpuscular Volume 98.6 fL (78.0-98.0); Platelet Count 191 thou/uL (130-400); RBC Distribution Width 15.4 % (11.5-14.5); Red Blood Cell (RBC) Count 3.58 mill/uL (4.20-5.40); White Blood Cell (WBC) Count 5.6 thou/uL (4.8-10.8)
[2020-12-26 07:07] LABS: ALT (SGPT) 12 U/L (8-55); AST (SGOT) 16 U/L (5-34); Albumin 3.9 g/dL (3.4-4.8); Alkaline Phosphatase 76 U/L (40-110); Anion Gap 14 mmol/L (10-20); BUN (Urea Nitrogen) 7 mg/dL (9.8-20.1); Bilirubin, Total 1.2 mg/dL (0.2-1.2); Calc. Creatinine Clearance 131 mL/min (70-130); Calcium 9.8 mg/dL (7.8-10.44); Carbon Dioxide 28 mmol/L (23-31); Chloride 102 mmol/L (98-107); Globulin 3.6 g/dL (2.4-3.5); Glucose 99 mg/dL (80-115); Magnesium 1.7 mg/dL (1.6-2.6); Potassium 3.1 mmol/L (3.5-5.1); Protein, Total 7.5 g/dL (5.8-8.1); Sodium 141 mmol/L (136-145)
[2020-12-26] MEDS ORDERED: Potassium Chloride 20 MEQ TAB PO SCH (08:30)
[2020-12-26] MEDS ORDERED: Multivitamin W/ Minerals 1 TAB PO SCH (09:00)
[2020-12-26] MEDS ORDERED: Magnesium Oxide 400 MG TAB PO SCH (09:00)
[2020-12-26] MEDS ORDERED: Thiamine 100 MG TAB PO SCH (09:00)
[2020-12-26] MEDS ORDERED: Folic Acid 1 MG TAB PO SCH (09:00)
[2020-12-26] MEDS ORDERED: Thiamine 100 MG TAB ONE (09:31)
[2020-12-26] MEDS ORDERED: Folic Acid 1 MG TAB ONE (09:31)
[2020-12-26] MEDS ORDERED: Potassium Chloride 20 MEQ TAB ONE (09:31)
[2020-12-26 15:12] LABS: Syphilis Antibody Nonreactive (Nonreactive); Syphilis Antibody Index 0.04 S/CO (<1.00 Non-Reactive)
[2020-12-26 15:17] LABS: Amphetamine Not Detected (NotDetected); Barbiturates Screen Not Detected (NotDetected); Benzodiazepine Screen Detected (NotDetected); Cocaine Metabolite Screen Not Detected (NotDetected); Methadone Not Detected (NotDetected); Methamphetamine Not Detected (NotDetected); Opiate Screen Not Detected (NotDetected); Oxycodone Screen Not Detected (NotDetected); Phencyclidine (PCP) Not Detected (NotDetected); THC/Cannabinoid Screen Not Detected (NotDetected); Tricyclic Screen Not Detected (NotDetected)
[2020-12-26] MEDS: chlordiazePOXIDE HCl 25 MG CAP PO SCH (20:35)
[2020-12-26] MEDS: hydrALAZINE 25 MG TAB PO SCH (22:02)
[2020-12-26] MEDS: cloNIDine 0.1 MG TAB PO SCH (22:02)
[2020-12-27 06:50] LABS: #Eosinphils 0.1 thou/uL (0.0-0.7); #Lymphocytes 1.3 thou/uL (1.20-3.40); #Monocytes 0.6 thou/uL (0.11-0.59); %Eosinophils 1.2 % (0.0-10.0); %Lymphocytes 21.4 % (21.0-51.0); %Monocytes 9.4 % (0.0-10.0); Hemoglobin 12.3 g/dL (12.0-16.0); Mean Corpuscular HGB CONC 33.5 g/dL (32.0-36.0); Mean Corpuscular Hemoglobin 33.3 pg (27.0-31.0); Mean Corpuscular Volume 99.5 fL (78.0-98.0); Mean Platelet Volume 7.7 fL (7.4-10.4); Platelet Count 192 thou/uL (130-400); RBC Distribution Width 15.4 % (11.5-14.5); White Blood Cell (WBC) Count 5.9 thou/uL (4.8-10.8)
[2020-12-27 07:09] LABS: ALT (SGPT) 9 U/L (8-55); AST (SGOT) 16 U/L (5-34); Albumin 3.8 g/dL (3.4-4.8); Alkaline Phosphatase 74 U/L (40-110); Anion Gap 17 mmol/L (10-20); BUN (Urea Nitrogen) 11 mg/dL (9.8-20.1); Bilirubin, Total 1.3 mg/dL (0.2-1.2); Calc. Creatinine Clearance 108 mL/min (70-130); Calcium 9.9 mg/dL (7.8-10.44); Carbon Dioxide 24 mmol/L (23-31); Chloride 102 mmol/L (98-107); Globulin 3.7 g/dL (2.4-3.5); Glucose 103 mg/dL (80-115); Magnesium 1.7 mg/dL (1.6-2.6); Potassium 3.5 mmol/L (3.5-5.1); Protein, Total 7.5 g/dL (5.8-8.1); Sodium 139 mmol/L (136-145)
[2020-12-27] MEDS: cloNIDine 0.1 MG TAB PO SCH ×2 (08:14→15:10)
[2020-12-27] MEDS: hydrALAZINE 25 MG TAB PO SCH ×2 (08:15→15:09)
[2020-12-27] MEDS: chlordiazePOXIDE HCl 25 MG CAP PO SCH ×2 (08:15→15:10)
[2020-12-27] MEDS ORDERED: Magnesium Oxide 400 MG TAB PO SCH (09:00)
[2020-12-27] MEDS ORDERED: Folic Acid 1 MG TAB PO SCH (09:00)
[2020-12-27] MEDS ORDERED: Multivitamin W/ Minerals 1 TAB PO SCH (09:00)
[2020-12-27] MEDS ORDERED: Thiamine 100 MG TAB PO SCH (09:00)
[2020-12-27 16:06] VITALS: BP 154/95; TEMP 98.5
== END 2020-12-27 16:45 | disposition home or self-care (01) | DRG 897 ==
LOC: ERS 22:02 → ERHOLD 22:51 → T4-A 12-26 12:54
PROVIDERS: ADMIT Internal Medicine; ATTEND Student in an Organized Health Care Education/Training Program
DX: F10.239 Alcohol dependence with withdrawal, unspecified (principal); I10 Essential (primary) hypertension; E78.5 Hyperlipidemia, unspecified; G62.9 Polyneuropathy, unspecified; K21.9 Gastro-esophageal reflux disease without esophagitis; Z96.642 Presence of left artificial hip joint; E83.42 Hypomagnesemia; F41.9 Anxiety disorder, unspecified; F32.9 Major depressive disorder, single episode, unspecified; Z88.8 Allergy status to other drugs, medicaments and biological substances; Z79.82 Long term (current) use of aspirin; Z79.899 Other long term (current) drug therapy
CPT/HCPCS: 36415; 80053; 80306; 83735; 85025; 86780; 96365; 96366; 96375; J2060; J3411; J3475; J3490; J7042; U0002; U0005

== ENCOUNTER 2021-04-19 08:05 | Outpatient (CLI) | payer MEDICARE | END 2021-04-19 08:06 | disposition home or self-care (01) | LOC: BICMAMMO 08:05 | PROVIDERS: ATTEND Family Medicine | DX: Z12.31 Encounter for screening mammogram for malignant neoplasm of breast (principal) | CPT/HCPCS: 77063; 77067 ==

== ENCOUNTER 2021-09-25 07:50 | Inpatient (IN) | payer OTHER, MEDICARE ==
[2021-09-25] MEDS ORDERED: Ondansetron ODT 4 MG TAB PO PRN (23:46)
[2021-09-25] MEDS ORDERED: HYDROcodone/Acetaminophen 7.5/325 mg Tablet PO PRN (23:46)
[2021-09-25] MEDS ORDERED: Morphine 2 MG/ML VIAL SLOW IVP PRN (23:52)
[2021-09-26] MEDS: Sodium Chloride 0.9% 1,000 ML IV SCH ×3 (00:12→20:41)
[2021-09-26 01:17] VITALS: BMI 32.2
[2021-09-26] MEDS: Multivitamins, Adult 10 ML, Folic Acid 1 MG, Thiamine HCl 100 MG in Dextrose 5 %-0.45 %... IV SCH (04:13)
[2021-09-26 04:32] LABS: #Lymphocytes 0.6 thou/uL (1.20-3.40); #Monocytes 0.8 thou/uL (0.11-0.59); #Neutrophils 7.8 thou/uL (1.40-6.50); %Basophils 0.2 % (0.0-1.0); %Eosinophils 0.1 % (0.0-10.0); %Lymphocytes 6.9 % (21.0-51.0); %Monocytes 8.1 % (0.0-10.0); %Neutrophils 84.6 % (42.0-75.0); Hemoglobin 11.1 g/dL (12.0-16.0); Mean Corpuscular HGB CONC 33.5 g/dL (32.0-36.0); Mean Platelet Volume 6.5 fL (7.4-10.4); Platelet Count 188 thou/uL (130-400); RBC Distribution Width 13.5 % (11.5-14.5); Red Blood Cell (RBC) Count 3.18 mill/uL (4.20-5.40); White Blood Cell (WBC) Count 9.2 thou/uL (4.8-10.8)
[2021-09-26 05:08] LABS: Anion Gap 13 mmol/L (10-20); BUN (Urea Nitrogen) 11 mg/dL (9.8-20.1); Calc. Creatinine Clearance 135 mL/min (70-130); Calcium 8.9 mg/dL (7.8-10.44); Carbon Dioxide 29 mmol/L (23-31); Chloride 98 mmol/L (98-107); Glucose 129 mg/dL (80-115); Lipase 800 U/L (8-78); Magnesium 1.3 mg/dL (1.6-2.6); Sodium 137 mmol/L (136-145)
[2021-09-26 05:23] LABS: Potassium 2.8 mmol/L (3.5-5.1)
[2021-09-26] MEDS ORDERED: Electrolyte Replacement Protocol FS PRN (06:00)
[2021-09-26] MEDS ORDERED: Magnesium Sulfate In Water 4 GM in Premix Bag 1 BAG IVPB SCH (08:00)
[2021-09-26] MEDS: NIFEdipine XL 30 MG TAB PO SCH (09:34)
[2021-09-26] MEDS: hydrALAZINE 25 MG TAB PO SCH ×4 (09:35→20:58)
[2021-09-26] MEDS: Losartan 25 MG TAB PO SCH (09:35)
[2021-09-26] MEDS: Potassium Chloride 20 MEQ TAB PO SCH ×2 (09:35→12:44)
[2021-09-26] MEDS: Enoxaparin Sodium 40 MG/0.4 ML SYRINGE SC SCH (09:36)
[2021-09-26] MEDS ORDERED: Lorazepam 2 MG/ML VIAL IM PRN (11:19)
[2021-09-26] MEDS ORDERED: Lorazepam 1 MG TAB PO PRN (11:19)
[2021-09-26] MEDS ORDERED: Electrolyte Replacement Protocol 1 EACH FS PRN (11:30)
[2021-09-26] MEDS: Thiamine HCl 200 MG/2 ML VIAL SLOW IVP SCH (12:45)
[2021-09-26 14:40] LABS: Magnesium 2.1 mg/dL (1.6-2.6); Potassium 3.1 mmol/L (3.5-5.1)
[2021-09-26] MEDS: Atorvastatin Calcium 20 MG TAB PO SCH (20:58)
[2021-09-26] MEDS: Aspirin 81 mg Enteric Coated Tablet PO SCH (20:58)
[2021-09-26] MEDS: Acetaminophen 325 MG TAB PO PRN (21:27)
[2021-09-27] MEDS: Multivitamins, Adult 10 ML, Folic Acid 1 MG, Thiamine HCl 100 MG in Dextrose 5 %-0.45 %... IV SCH (04:52)
[2021-09-27 05:07] LABS: ALT (SGPT) 13 U/L (8-55); AST (SGOT) 25 U/L (5-34); Albumin 3.1 g/dL (3.4-4.8); Alkaline Phosphatase 93 U/L (40-110); Anion Gap 13 mmol/L (10-20); BUN (Urea Nitrogen) 10 mg/dL (9.8-20.1); Bilirubin, Direct 0.4 mg/dL (0.1-0.3); Bilirubin, Total 0.7 mg/dL (0.2-1.2); Calc. Creatinine Clearance 132 mL/min (70-130); Calcium 8.7 mg/dL (7.8-10.44); Carbon Dioxide 26 mmol/L (23-31); Chloride 100 mmol/L (98-107); Glucose 110 mg/dL (80-115); Lipase 198 U/L (8-78); Magnesium 1.9 mg/dL (1.6-2.6); Phosphorus 2.5 mg/dL (2.3-4.7); Protein, Total 6.2 g/dL (5.8-8.1); Sodium 136 mmol/L (136-145)
[2021-09-27 05:17] LABS: Hemoglobin 11.3 g/dL (12.0-16.0); Mean Corpuscular HGB CONC 32.6 g/dL (32.0-36.0); Mean Corpuscular Hemoglobin 34.1 pg (27.0-31.0); Mean Platelet Volume 7.1 fL (7.4-10.4); Platelet Count 222 thou/uL (130-400); RBC Distribution Width 13.6 % (11.5-14.5); Red Blood Cell (RBC) Count 3.31 mill/uL (4.20-5.40); White Blood Cell (WBC) Count 10.3 thou/uL (4.8-10.8)
[2021-09-27] MEDS: Sodium Chloride 0.9% 1,000 ML IV SCH ×2 (07:22→18:01)
[2021-09-27] MEDS ORDERED: Lorazepam 2 MG/ML VIAL SLOW IVP PRN (07:46)
[2021-09-27] MEDS ORDERED: Magnesium Sulfate 2 GM in Sodium Chloride 0.9% 100 ML IVPB SCH (08:00)
[2021-09-27] MEDS: Potassium Chloride 20 MEQ in Premix Bag 1 BAG IVPB SCH ×2 (09:58→12:08)
[2021-09-27] MEDS: Enoxaparin Sodium 40 MG/0.4 ML SYRINGE SC SCH (09:58)
[2021-09-27] MEDS: Losartan 25 MG TAB PO SCH (10:00)
[2021-09-27] MEDS: hydrALAZINE 25 MG TAB PO SCH ×3 (10:00→20:36)
[2021-09-27] MEDS: NIFEdipine XL 30 MG TAB PO SCH (10:00)
[2021-09-27] MEDS: Pantoprazole 40 MG VIAL IVP SCH (10:01)
[2021-09-27] MEDS: Multivit, Therapeutic 1 TAB PO SCH (10:01)
[2021-09-27] MEDS: Folic Acid 1 MG TAB PO SCH (10:01)
[2021-09-27] MEDS ORDERED: Lorazepam 1 MG TAB PO PRN (11:19)
[2021-09-27] MEDS: Acetaminophen 325 MG TAB PO PRN (15:49)
[2021-09-27] MEDS: Thiamine HCl 200 MG/2 ML VIAL SLOW IVP SCH (15:50)
[2021-09-27] MEDS: Aspirin 81 mg Enteric Coated Tablet PO SCH (20:36)
[2021-09-27] MEDS: Atorvastatin Calcium 20 MG TAB PO SCH (20:36)
[2021-09-28] MEDS: Sodium Chloride 0.9% 1,000 ML IV SCH ×3 (03:48→22:47)
[2021-09-28] MEDS: Multivitamins, Adult 10 ML, Folic Acid 1 MG, Thiamine HCl 100 MG in Dextrose 5 %-0.45 %... IV SCH (04:31)
[2021-09-28 04:32] LABS: Mean Corpuscular Hemoglobin 33.6 pg (27.0-31.0); Mean Platelet Volume 7.1 fL (7.4-10.4); Platelet Count 224 thou/uL (130-400); RBC Distribution Width 13.6 % (11.5-14.5); Red Blood Cell (RBC) Count 3.27 mill/uL (4.20-5.40); White Blood Cell (WBC) Count 9.9 thou/uL (4.8-10.8)
[2021-09-28 04:49] LABS: Anion Gap 12 mmol/L (10-20); BUN (Urea Nitrogen) 9 mg/dL (9.8-20.1); Calc. Creatinine Clearance 135 mL/min (70-130); Calcium 8.4 mg/dL (7.8-10.44); Carbon Dioxide 24 mmol/L (23-31); Chloride 102 mmol/L (98-107); Glucose 98 mg/dL (80-115); Potassium 3.1 mmol/L (3.5-5.1); Sodium 135 mmol/L (136-145)
[2021-09-28] MEDS ORDERED: Potassium Chloride 20 MEQ TAB PO SCH (08:00)
[2021-09-28] MEDS: NIFEdipine XL 30 MG TAB PO SCH (10:43)
[2021-09-28] MEDS: Folic Acid 1 MG TAB PO SCH (10:43)
[2021-09-28] MEDS: hydrALAZINE 25 MG TAB PO SCH ×3 (10:43→22:44)
[2021-09-28] MEDS: Multivit, Therapeutic 1 TAB PO SCH (10:44)
[2021-09-28] MEDS: Enoxaparin Sodium 40 MG/0.4 ML SYRINGE SC SCH (10:44)
[2021-09-28] MEDS: Losartan 25 MG TAB PO SCH (10:44)
[2021-09-28] MEDS: Pantoprazole 40 MG VIAL IVP SCH (10:45)
[2021-09-28] MEDS ORDERED: Lorazepam 1 MG TAB PO PRN (11:19)
[2021-09-28] MEDS: Thiamine HCl 200 MG/2 ML VIAL SLOW IVP SCH (13:40)
[2021-09-28] MEDS: Aspirin 81 mg Enteric Coated Tablet PO SCH (22:44)
[2021-09-28] MEDS: Atorvastatin Calcium 20 MG TAB PO SCH (22:44)
[2021-09-29 05:06] LABS: Hemoglobin 10.2 g/dL (12.0-16.0); Mean Corpuscular HGB CONC 32.3 g/dL (32.0-36.0); Mean Corpuscular Hemoglobin 33.9 pg (27.0-31.0); Mean Platelet Volume 6.6 fL (7.4-10.4); Platelet Count 231 thou/uL (130-400); RBC Distribution Width 13.5 % (11.5-14.5); Red Blood Cell (RBC) Count 3.02 mill/uL (4.20-5.40); White Blood Cell (WBC) Count 8.2 thou/uL (4.8-10.8)
[2021-09-29 05:31] LABS: Anion Gap 10 mmol/L (10-20); BUN (Urea Nitrogen) 9 mg/dL (9.8-20.1); Calc. Creatinine Clearance 138 mL/min (70-130); Carbon Dioxide 21 mmol/L (23-31); Chloride 104 mmol/L (98-107); Glucose 98 mg/dL (80-115); Potassium 3.2 mmol/L (3.5-5.1); Sodium 132 mmol/L (136-145)
[2021-09-29] MEDS ORDERED: Potassium Chloride 20 MEQ TAB PO SCH (08:00)
[2021-09-29] MEDS: Sodium Chloride 0.9% 1,000 ML IV SCH (08:15)
[2021-09-29 08:46] VITALS: TEMP 98.9
[2021-09-29] MEDS: NIFEdipine XL 30 MG TAB PO SCH (09:29)
[2021-09-29] MEDS: Folic Acid 1 MG TAB PO SCH (09:29)
[2021-09-29] MEDS: Enoxaparin Sodium 40 MG/0.4 ML SYRINGE SC SCH (09:29)
[2021-09-29] MEDS: hydrALAZINE 25 MG TAB PO SCH (09:29)
[2021-09-29] MEDS: Losartan 25 MG TAB PO SCH (09:29)
[2021-09-29] MEDS: Multivit, Therapeutic 1 TAB PO SCH (09:30)
[2021-09-29] MEDS: Pantoprazole 40 MG VIAL IVP SCH (09:30)
[2021-09-29 10:49] VITALS: BP 147/76
[2021-09-29] MEDS ORDERED: Lorazepam 0.5 MG TAB PO PRN (11:19)
== END 2021-09-29 12:45 | disposition home or self-care (01) | DRG 440 ==
LOC: 2NO 07:50
PROVIDERS: ADMIT Internal Medicine; ATTEND Internal Medicine
DX: K85.20 Alcohol induced acute pancreatitis without necrosis or infection (principal); K21.9 Gastro-esophageal reflux disease without esophagitis; E78.5 Hyperlipidemia, unspecified; I10 Essential (primary) hypertension; Z96.642 Presence of left artificial hip joint; E87.6 Hypokalemia; K59.00 Constipation, unspecified; K83.8 Other specified diseases of biliary tract; E83.42 Hypomagnesemia; F41.9 Anxiety disorder, unspecified; F32.A Depression, unspecified; F17.290 Nicotine dependence, other tobacco product, uncomplicated; F10.20 Alcohol dependence, uncomplicated; Z20.822 Contact with and (suspected) exposure to COVID-19; K80.20 Calculus of gallbladder without cholecystitis without obstruction; W19.XXXA Unspecified fall, initial encounter; Y92.239 Unspecified place in hospital as the place of occurrence of the external cause; Z88.8 Allergy status to other drugs, medicaments and biological substances; Z91.81 History of falling; Z79.899 Other long term (current) drug therapy; Z79.82 Long term (current) use of aspirin
CPT/HCPCS: 36415; 70450; 72125; 76705; 80048; 80076; 83690; 83735; 84100; 84478; 85025; 85027; C9113; J1650; J3411; J3475; J3480; J3490; J7042; J7050; Q0162

== ENCOUNTER 2021-12-18 09:02 | Outpatient (CLI) | payer MEDICARE ==
[2021-12-18 10:23] LABS: #Monocytes 0.5 10x3/uL (0.0-1.1); #Neutrophils 6.5 10x3/uL (1.5-8.4); %Basophils 0.2 % (0.0-2.0); %Eosinophils 0.2 % (0.0-6.0); %Lymphocytes 19.6 % (18.0-47.0); %Monocytes 5.1 % (0.0-10.0); %Neutrophils 74.4 % (40.0-75.0); Hemoglobin 10.9 g/dL (12.0-15.5); Mean Corpuscular HGB CONC 33.1 g/dL (32.0-36.0); Mean Corpuscular Hemoglobin 31.1 pg (27.0-33.0); Mean Platelet Volume 10.4 fl (7.4-10.4); Platelet Count 301 10x3/uL (150-450); RBC Distribution Width 14.1 % (11.5-14.5); White Blood Cell (WBC) Count 8.8 10x3/uL (3.5-10.5)
[2021-12-18 10:47] LABS: ALT (SGPT) 13 U/L (8-55); AST (SGOT) 19 U/L (5-34); Albumin 4.2 g/dL (3.4-4.8); Alkaline Phosphatase 73 U/L (40-110); Anion Gap 17 mmol/L (10-20); BUN (Urea Nitrogen) 20 mg/dL (9.8-20.1); Bilirubin, Direct 0.4 mg/dL (0.1-0.3); Bilirubin, Total 0.9 mg/dL (0.2-1.2); Calc. Creatinine Clearance 0 mL/min (70-130); Calcium 9.7 mg/dL (7.8-10.44); Carbon Dioxide 21 mmol/L (23-31); Chloride 105 mmol/L (98-107); Estimated GFR 76; Glucose 113 mg/dL (80-115); Potassium 4.3 mmol/L (3.5-5.1); Protein, Total 7.4 g/dL (5.8-8.1); Sodium 139 mmol/L (136-145)
== END 2021-12-18 09:03 | disposition home or self-care (01) ==
LOC: LABBT 09:02
PROVIDERS: ATTEND Surgery
DX: Z01.818 Encounter for other preprocedural examination (principal); K80.20 Calculus of gallbladder without cholecystitis without obstruction; Z20.822 Contact with and (suspected) exposure to COVID-19
CPT/HCPCS: 80048; 80076; 85025; 87811; 93005; 93010

== ENCOUNTER 2021-12-21 09:30 | Day surgery (SDC) | payer MEDICARE ==
[2021-12-19 14:07] VITALS: BMI 30.4
[2021-12-21] MEDS ORDERED: Iopamidol 15 ML ONE ×2 (10:45→11:35)
[2021-12-21] MEDS ORDERED: Bupivacaine/Epinephrine 0.25% 30 ML VIAL ONE (10:45)
[2021-12-21] MEDS ORDERED: SUGAMMADEX SODIUM 200 MG/2 ML VIAL ONE (11:22)
[2021-12-21] MEDS ORDERED: fentaNYL Citrate/PF 100 MCG/2 ML SYRINGE ONE (11:22)
[2021-12-21] MEDS ORDERED: CEFAZOLIN 2 GM VIAL ONE (11:28)
[2021-12-21] MEDS ORDERED: Sodium Chloride 0.9% 100 ML ONE (11:28)
[2021-12-21] MEDS ORDERED: Ondansetron PF 4 MG/2 ML Vial ONE (11:40)
[2021-12-21] MEDS ORDERED: Rocuronium Bromide 10 MG/ML (10ML VIAL) ONE (11:40)
[2021-12-21] MEDS ORDERED: Neostigmine Methylsulfate 3 MG/3 ML SYRINGE ONE (11:40)
[2021-12-21] MEDS ORDERED: Glycopyrrolate 0.2 MG/ML 5 ML SYRINGE ONE (11:40)
[2021-12-21] MEDS ORDERED: PROPOFOL 200 MG/20 ML VIAL ONE (11:40)
[2021-12-21] MEDS ORDERED: Lidocaine 1% PF 5 ML VIAL ONE (11:40)
[2021-12-21] MEDS ORDERED: Dexamethasone 20 MG/5 ML VIAL ONE (11:40)
[2021-12-21] MEDS ORDERED: Albuterol Sulfate 2.5 mg/3 ml Neb ONE (12:40)
== END 2021-12-21 13:54 | disposition home or self-care (01) ==
LOC: SDC 09:30
PROVIDERS: ATTEND Surgery
PROC: 0FT44ZZ Resection of Gallbladder, Percutaneous Endoscopic Approach (ICD-10-PCS; principal; 2021-12-21)
PROC: BF101ZZ Fluoroscopy of Bile Ducts using Low Osmolar Contrast (ICD-10-PCS; 2021-12-21)
DX: K80.10 Calculus of gallbladder with chronic cholecystitis without obstruction (principal); K85.10 Biliary acute pancreatitis without necrosis or infection; I10 Essential (primary) hypertension; E78.5 Hyperlipidemia, unspecified; F17.290 Nicotine dependence, other tobacco product, uncomplicated; F10.10 Alcohol abuse, uncomplicated; Z79.82 Long term (current) use of aspirin; Z79.899 Other long term (current) drug therapy; Z88.8 Allergy status to other drugs, medicaments and biological substances
CPT/HCPCS: 47532; 88304; C1713; J0690; J1100; J2405; J2704; J3490; J7611; J7620; Q9967

== ENCOUNTER 2023-05-09 07:59 | Outpatient (CLI) | payer MEDICARE | END 2023-05-09 08:00 | disposition home or self-care (01) | LOC: BICMAMMO 07:59 | PROVIDERS: ATTEND Family Medicine | DX: Z12.31 Encounter for screening mammogram for malignant neoplasm of breast (principal); N63.11 Unspecified lump in the right breast, upper outer quadrant | CPT/HCPCS: 77063; 77067 ==

== ENCOUNTER 2023-09-26 10:25 | Inpatient (IN) | payer MEDICARE ==
[2023-09-26 12:09] VITALS: BMI 29.4
[2023-09-26] MEDS: Morphine 4 MG/ML VIAL SLOW IVP SCH (14:41)
[2023-09-26] MEDS: Sodium Chloride 0.9% 1,000 ML IV SCH (14:52)
[2023-09-26] MEDS: Ondansetron PF 4 MG/2 ML Vial IVP PRN (14:53)
[2023-09-26 16:03] LABS: ALT (SGPT) 55 U/L (8-55); AST (SGOT) 67 U/L (5-34); Albumin 3.2 g/dL (3.4-4.8); Alkaline Phosphatase 107 U/L (40-110); Anion Gap 16 mmol/L (10-20); BUN (Urea Nitrogen) 21 mg/dL (9.8-20.1); Bilirubin, Total 0.6 mg/dL (0.2-1.2); Calc. Creatinine Clearance 67 mL/min (70-130); Calcium 8.7 mg/dL (7.8-10.44); Carbon Dioxide 17 mmol/L (23-31); Cardiac Risk 1.4 (Less than 4.5); Chloride 100 mmol/L (98-107); Cholesterol 157 mg/dl (< 200 Desired); Estimated GFR 59; Globulin 3.7 g/dL (2.4-3.5); Glucose 104 mg/dL (80-115); HDL Cholesterol 113 mg/dL (>60 Neg Risk); LDL Cholesterol, Calculated 39 mg/dL; Lipase 275 U/L (8-78); Magnesium 1.7 mg/dL (1.6-2.6); Potassium 5.1 mmol/L (3.5-5.1); Protein, Total 6.9 g/dL (5.8-8.1); Sodium 128 mmol/L (136-145); Triglycerides 23 mg/dL (Less than 150)
[2023-09-26] MEDS: Morphine 4 MG/ML VIAL SLOW IVP PRN (20:01)
[2023-09-26] MEDS: Aspirin 81 mg Enteric Coated Tablet PO SCH (20:02)
[2023-09-26] MEDS: Atorvastatin Calcium 20 MG TAB PO SCH (20:02)
[2023-09-26] MEDS: cloNIDine 0.2 MG TAB PO SCH (20:03)
[2023-09-27] MEDS: Acetaminophen 325 MG TAB PO PRN (03:15)
[2023-09-27 05:44] LABS: #Basophils Less than 0.03 10x3/uL (0.0-0.2); %Basophils 0.2 % (0.0-1.0); %Eosinophils 1.4 % (0.0-10.0); %Lymphocytes 16.1 % (21.0-51.0); %Monocytes 7.9 % (0.0-10.0); %Neutrophils 73.9 % (42.0-75.0); Hematocrit 29.7 % (36.0-47.0); Hemoglobin 9.8 g/dL (12.0-16.0); Mean Corpuscular Hemoglobin 33.4 pg (27.0-31.0); Mean Corpuscular Volume 101.4 fL (78.0-98.0); Mean Platelet Volume 9.5 fL (7.4-10.4); Platelet Count 213 10x3/uL (130-400); RBC Distribution Width 13.5 % (11.5-14.5); Red Blood Cell (RBC) Count 2.93 mill/uL (4.20-5.40)
[2023-09-27 06:12] LABS: ALT (SGPT) 56 U/L (8-55); AST (SGOT) 69 U/L (5-34); Albumin 2.8 g/dL (3.4-4.8); Alkaline Phosphatase 121 U/L (40-110); Anion Gap 13 mmol/L (10-20); BUN (Urea Nitrogen) 18 mg/dL (9.8-20.1); Bilirubin, Total 0.5 mg/dL (0.2-1.2); Calc. Creatinine Clearance 82 mL/min (70-130); Calcium 8.6 mg/dL (7.8-10.44); Carbon Dioxide 18 mmol/L (23-31); Chloride 104 mmol/L (98-107); Estimated GFR 74; Globulin 3.3 g/dL (2.4-3.5); Glucose 94 mg/dL (80-115); Lipase 162 U/L (8-78); Potassium 4.3 mmol/L (3.5-5.1); Protein, Total 6.1 g/dL (5.8-8.1); Sodium 131 mmol/L (136-145)
[2023-09-27] MEDS: Folic Acid 1 MG TAB PO SCH (08:54)
[2023-09-27] MEDS: Thiamine 100 MG TAB PO SCH (08:54)
[2023-09-27] MEDS: Losartan 25 MG TAB PO SCH (08:56)
[2023-09-27] MEDS ORDERED: Fluticasone Propionate Nasal Spray 16 gm Bottle NASAL PRN (12:13)
[2023-09-27 19:50] VITALS: BP 122/72; TEMP 97.6
[2023-09-28] MEDS ORDERED: Sertraline 25 MG TAB PO SCH (09:00)
== END 2023-09-27 19:25 | disposition home or self-care (01) | DRG 440 ==
LOC: MSONC 11:42
PROVIDERS: ADMIT Internal Medicine; ATTEND Internal Medicine
DX: K85.90 Acute pancreatitis without necrosis or infection, unspecified (principal); K21.9 Gastro-esophageal reflux disease without esophagitis; E78.5 Hyperlipidemia, unspecified; I10 Essential (primary) hypertension; E87.5 Hyperkalemia; G62.9 Polyneuropathy, unspecified; Z90.49 Acquired absence of other specified parts of digestive tract; Z79.82 Long term (current) use of aspirin; Z79.899 Other long term (current) drug therapy
CPT/HCPCS: 36415; 80053; 80061; 83690; 83735; 85025; J2270; J2405; J7050

== ENCOUNTER 2024-03-23 17:14 | Inpatient (IN) | payer MEDICARE ==
[2024-03-23] MEDS ORDERED: Lorazepam 2 MG/ML VIAL IM PRN (21:43)
[2024-03-23] MEDS ORDERED: Lorazepam 1 MG TAB PO PRN (21:43)
[2024-03-23] MEDS ORDERED: Electrolyte Replacement Protocol 1 EACH FS SCH (21:45)
[2024-03-23] MEDS: Folic Acid 1 MG TAB PO SCH (22:28)
[2024-03-23] MEDS: Multivit, Therapeutic 1 TAB PO SCH (22:28)
[2024-03-23] MEDS: Thiamine HCl 200 MG/2 ML VIAL SLOW IVP SCH (22:28)
[2024-03-23] MEDS: Sodium Chloride 0.9% 1,000 ML IV SCH (22:29)
[2024-03-23] MEDS: Pantoprazole 40 MG VIAL IVP SCH (22:29)
[2024-03-23 22:46] LABS: Alcohol Less than 10.0 mg/dL (Less than 10)
[2024-03-23 22:47] LABS: Phosphorus 2.4 mg/dL (2.3-4.7)
[2024-03-23 22:49] LABS: Magnesium 1.8 mg/dL (1.6-2.6)
[2024-03-24] MEDS: Magnesium 2 GM/50 ML(in water) 2 GM in Premix 1 BAG IVPB SCH (01:55)
[2024-03-24 04:41] LABS: #Basophils Less than 0.03 10x3/uL (0.0-0.2); %Basophils 0.6 % (0.0-1.0); %Eosinophils 0.9 % (0.0-10.0); %Neutrophils 56.6 % (42.0-75.0); Hematocrit 29.7 % (36.0-47.0); Hemoglobin 9.8 g/dL (12.0-16.0); Mean Corpuscular Hemoglobin 33.3 pg (27.0-31.0); Mean Platelet Volume 9.1 fL (7.4-10.4); Platelet Count 176 10x3/uL (130-400); RBC Distribution Width 12.8 % (11.5-14.5); Red Blood Cell (RBC) Count 2.94 mill/uL (4.20-5.40)
[2024-03-24 05:24] LABS: Lipase 433 U/L (8-78)
[2024-03-24 05:40] LABS: ALT (SGPT) 125 U/L (8-55); AST (SGOT) 409 U/L (5-34); Albumin 2.5 g/dL (3.4-4.8); Alkaline Phosphatase 215 U/L (40-110); Anion Gap 13 mmol/L (10-20); BUN (Urea Nitrogen) 14 mg/dL (9.8-20.1); Bilirubin, Total 1.3 mg/dL (0.2-1.2); Calc. Creatinine Clearance 93 mL/min (70-130); Calcium 8.2 mg/dL (7.8-10.44); Carbon Dioxide 22 mmol/L (23-31); Chloride 103 mmol/L (98-107); Estimated GFR 87; Globulin 3.1 g/dL (2.4-3.5); Glucose 113 mg/dL (80-115); Magnesium 2.7 mg/dL (1.6-2.6); Potassium 3.6 mmol/L (3.5-5.1); Protein, Total 5.6 g/dL (5.8-8.1); Sodium 134 mmol/L (136-145)
[2024-03-24] MEDS: Ondansetron PF 4 MG/2 ML Vial IVP PRN (07:17)
[2024-03-24] MEDS: Morphine 2 MG/ML VIAL SLOW IVP PRN (07:17)
[2024-03-24] MEDS: Folic Acid 1 MG TAB PO SCH (08:35)
[2024-03-24] MEDS: Enoxaparin 40 MG (0.4 mL) SYRINGE SC SCH (08:35)
[2024-03-24] MEDS: Multivit, Therapeutic 1 TAB PO SCH (08:35)
[2024-03-24] MEDS: Pantoprazole 40 MG VIAL IVP SCH ×2 (08:36→21:30)
[2024-03-24] MEDS ORDERED: Electrolyte Replacement Protocol FS PRN (11:45)
[2024-03-24] MEDS ORDERED: Lorazepam 1 MG TAB PO PRN (21:43)
[2024-03-25 03:38] VITALS: TEMP 98.1
[2024-03-25 04:47] LABS: #Basophils Less than 0.03 10x3/uL (0.0-0.2); %Basophils 0.3 % (0.0-1.0); %Eosinophils 1.7 % (0.0-10.0); %Lymphocytes 26.4 % (21.0-51.0); %Monocytes 15.1 % (0.0-10.0); %Neutrophils 55.5 % (42.0-75.0); Hematocrit 28.6 % (36.0-47.0); Hemoglobin 8.7 g/dL (12.0-16.0); Mean Corpuscular HGB CONC 30.4 g/dL (32.0-36.0); Mean Corpuscular Hemoglobin 34.1 pg (27.0-31.0); Mean Corpuscular Volume 112.2 fL (78.0-98.0); Mean Platelet Volume 9.4 fL (7.4-10.4); Platelet Count 164 10x3/uL (130-400); Red Blood Cell (RBC) Count 2.55 mill/uL (4.20-5.40)
[2024-03-25 05:02] LABS: ALT (SGPT) 106 U/L (8-55); AST (SGOT) 184 U/L (5-34); Albumin 2.2 g/dL (3.4-4.8); Alkaline Phosphatase 189 U/L (40-110); Anion Gap 13 mmol/L (10-20); BUN (Urea Nitrogen) 11 mg/dL (9.8-20.1); Bilirubin, Total 0.6 mg/dL (0.2-1.2); Calc. Creatinine Clearance 109 mL/min (70-130); Calcium 7.5 mg/dL (7.8-10.44); Carbon Dioxide 18 mmol/L (23-31); Chloride 109 mmol/L (98-107); Estimated GFR 95; Glucose 90 mg/dL (80-115); Potassium 3.6 mmol/L (3.5-5.1); Protein, Total 5.2 g/dL (5.8-8.1); Sodium 136 mmol/L (136-145)
[2024-03-25 05:14] VITALS: BMI 29.5
[2024-03-25] MEDS: Sertraline 100 MG TAB PO SCH (08:32)
[2024-03-25] MEDS: Losartan 25 MG TAB PO SCH (08:32)
[2024-03-25] MEDS: Magnesium 2 GM/50 ML(in water) 2 GM in Premix 1 BAG IVPB SCH (08:33)
[2024-03-25] MEDS: Acetaminophen 325 MG TAB PO PRN (08:56)
[2024-03-25 12:10] VITALS: BP 135/82
[2024-03-25] MEDS ORDERED: Lorazepam 1 MG TAB PO PRN (21:43)
[2024-03-26] MEDS ORDERED: Thiamine 100 MG TAB PO SCH (21:00)
[2024-03-26] MEDS ORDERED: Lorazepam 0.5 MG TAB PO PRN (21:43)
== END 2024-03-25 12:05 | disposition home or self-care (01) | DRG 439 ==
LOC: MSONC 21:32
PROVIDERS: ADMIT Internal Medicine; ATTEND Family Medicine
DX: K85.20 Alcohol induced acute pancreatitis without necrosis or infection (principal); E87.1 Hypo-osmolality and hyponatremia; I10 Essential (primary) hypertension; E78.5 Hyperlipidemia, unspecified; K21.9 Gastro-esophageal reflux disease without esophagitis; F41.9 Anxiety disorder, unspecified; F32.A Depression, unspecified; Z96.642 Presence of left artificial hip joint; Z88.8 Allergy status to other drugs, medicaments and biological substances; Z90.49 Acquired absence of other specified parts of digestive tract; Z98.890 Other specified postprocedural states; Z79.899 Other long term (current) drug therapy
CPT/HCPCS: 36415; 80053; 80307; 83690; 83735; 84100; 85025; J1650; J2272; J2405; J2470; J3411; J3475; J7030

== ENCOUNTER 2024-05-21 08:02 | Outpatient (CLI) | payer MEDICARE | END 2024-05-21 08:03 | disposition home or self-care (01) | LOC: BICMAMMO 08:02 | PROVIDERS: ATTEND Family Medicine | DX: Z12.31 Encounter for screening mammogram for malignant neoplasm of breast (principal) | CPT/HCPCS: 77063; 77067 ==

== ENCOUNTER 2024-06-21 12:14 | Observation (INO) | payer MEDICARE ==
[2024-06-21] MEDS ORDERED: Guaifenesin DM 100-10/5 ML UDCUP PO PRN (12:39)
[2024-06-21] MEDS ORDERED: Senokot S 8.6-50 MG TAB PO PRN (12:39)
[2024-06-21] MEDS ORDERED: Ketorolac Tromethamine 30 MG (1 mL) VIAL IVP PRN (12:44)
[2024-06-21 12:46] VITALS: BMI 28.0
[2024-06-21] MEDS ORDERED: Lorazepam 1 MG TAB PO PRN (13:17)
[2024-06-21] MEDS ORDERED: Ondansetron ODT 4 MG TAB PO PRN (13:17)
[2024-06-21] MEDS ORDERED: Electrolyte Replacement Protocol 1 EACH FS SCH (13:30)
[2024-06-21] MEDS ORDERED: hydrALAZINE 20 MG/ML VIAL SLOW IVP PRN (13:37)
[2024-06-21] MEDS: Sodium Chloride 0.9% 1,000 ML IV SCH (13:44)
[2024-06-21] MEDS: Lorazepam 1 MG TAB PO SCH (14:02)
[2024-06-21] MEDS: Morphine 2 MG/ML VIAL SLOW IVP PRN (14:02)
[2024-06-21] MEDS: Thiamine HCl 200 MG/2 ML VIAL SLOW IVP SCH (14:03)
[2024-06-21] MEDS: Ondansetron PF 4 MG/2 ML Vial IVP PRN (14:13)
[2024-06-21 18:01] LABS: ALT (SGPT) 34 U/L (Less than 34); AST (SGOT) 113 U/L (11-34); Albumin 3.1 g/dL (3.1-4.5); Alkaline Phosphatase 128 U/L (40-110); Anion Gap 21 mmol/L (10-20); BUN (Urea Nitrogen) 18 mg/dL (9.8-20.1); Bilirubin, Direct 0.6 mg/dL (0.1-0.3); Calc. Creatinine Clearance 72 mL/min (70-130); Calcium 8.7 mg/dL (7.8-10.44); Carbon Dioxide 14 mmol/L (23-31); Chloride 103 mmol/L (98-107); Estimated GFR 69; Globulin 3.7 g/dL (2.4-3.5); Glucose 113 mg/dL (80-115); Magnesium 1.5 mg/dL (1.6-2.6); Potassium 3.8 mmol/L (3.5-5.1); Protein, Total 6.8 g/dL (5.8-8.1); Sodium 134 mmol/L (136-145)
[2024-06-21 18:04] LABS: Phosphorus 1.1 mg/dL (2.5-4.5)
[2024-06-21] MEDS: Magnesium Sulfate 3 GM in Sodium Chloride 0.9% 100 ML IVPB SCH (19:33)
[2024-06-21] MEDS: PHOS-NAK 1 PKT PACK PO SCH ×2 (19:57→23:33)
[2024-06-21] MEDS: Magnesium 2 GM/50 ML(in water) 2 GM in Premix 1 BAG IVPB SCH (19:57)
[2024-06-21] MEDS: Famotidine/PF 20 mg/2ml Vial SLOW IVP SCH (19:58)
[2024-06-21] MEDS: Aspirin 81 mg Enteric Coated Tablet PO SCH (19:58)
[2024-06-22 05:34] LABS: ALT (SGPT) 35 U/L (Less than 34); AST (SGOT) 123 U/L (11-34); Alkaline Phosphatase 141 U/L (40-110); Anion Gap 16 mmol/L (10-20); BUN (Urea Nitrogen) 18 mg/dL (9.8-20.1); Bilirubin, Total 0.7 mg/dL (0.3-1.2); Calc. Creatinine Clearance 76 mL/min (70-130); Calcium 8.4 mg/dL (7.8-10.44); Carbon Dioxide 19 mmol/L (23-31); Cardiac Risk 1.5 (Less than 4.5); Chloride 106 mmol/L (98-107); Cholesterol 134 mg/dl (< 200 Desired); Estimated GFR 73; Glucose 120 mg/dL (80-115); HDL Cholesterol 92 mg/dL (>60 Neg Risk); LDL Cholesterol, Calculated 35 mg/dL; Lipase 180 U/L (8-78); Potassium 3.8 mmol/L (3.5-5.1); Sodium 137 mmol/L (136-145); Triglycerides 35 mg/dL (Less than 150)
[2024-06-22 05:39] LABS: #Basophils Less than 0.03 10x3/uL (0.0-0.2); %Basophils 0.2 % (0.0-1.0); %Eosinophils 0.9 % (0.0-10.0); %Lymphocytes 13.9 % (21.0-51.0); %Neutrophils 72.5 % (42.0-75.0); Hematocrit 31.6 % (36.0-47.0); Hemoglobin 10.5 g/dL (12.0-16.0); Mean Corpuscular HGB CONC 33.2 g/dL (32.0-36.0); Mean Corpuscular Volume 99.4 fL (78.0-98.0); Mean Platelet Volume 9.1 fL (7.4-10.4); Platelet Count 121 10x3/uL (130-400); RBC Distribution Width 12.9 % (11.5-14.5); Red Blood Cell (RBC) Count 3.18 mill/uL (4.20-5.40)
[2024-06-22] MEDS ORDERED: Sodium Chloride 0.9% 1,000 ML IV SCH (08:45)
[2024-06-22] MEDS: Enoxaparin 40 MG (0.4 mL) SYRINGE SC SCH (10:12)
[2024-06-22] MEDS: Pantoprazole 40 MG DR.TAB PO SCH (10:13)
[2024-06-22] MEDS: Spironolactone 25 MG TAB PO SCH (10:13)
[2024-06-22] MEDS: Multivit, Therapeutic 1 TAB PO SCH (10:14)
[2024-06-22] MEDS: Losartan 25 MG TAB PO SCH (10:14)
[2024-06-22] MEDS: Sertraline 25 MG TAB PO SCH (10:14)
[2024-06-22] MEDS: Folic Acid 1 MG TAB PO SCH (10:14)
[2024-06-22 10:28] LABS: ALT (SGPT) 35 U/L (Less than 34); AST (SGOT) 101 U/L (11-34); Albumin 2.8 g/dL (3.1-4.5); Alkaline Phosphatase 142 U/L (40-110); Anion Gap 14 mmol/L (10-20); BUN (Urea Nitrogen) 18 mg/dL (9.8-20.1); Bilirubin, Total 0.7 mg/dL (0.3-1.2); Calc. Creatinine Clearance 79 mL/min (70-130); Calcium 8.5 mg/dL (7.8-10.44); Carbon Dioxide 21 mmol/L (23-31); Chloride 106 mmol/L (98-107); Estimated GFR 76; Globulin 3.6 g/dL (2.4-3.5); Glucose 112 mg/dL (80-115); Potassium 3.9 mmol/L (3.5-5.1); Protein, Total 6.4 g/dL (5.8-8.1); Sodium 137 mmol/L (136-145)
[2024-06-22 11:57] VITALS: BP 134/81; TEMP 97.8
[2024-06-22] MEDS ORDERED: Lorazepam 1 MG TAB PO PRN (13:18)
[2024-06-22 14:54] VITALS: BMI 28.0
[2024-06-23] MEDS ORDERED: Lorazepam 1 MG TAB PO PRN (13:18)
[2024-06-23] MEDS ORDERED: Lorazepam 0.5 MG TAB PO SCH (13:30)
[2024-06-24] MEDS ORDERED: Lorazepam 0.5 MG TAB PO PRN (13:18)
[2024-06-24] MEDS ORDERED: Thiamine 100 MG TAB PO SCH (13:30)
== END 2024-06-22 15:45 | disposition home or self-care (01) ==
LOC: MSONC 12:18
PROVIDERS: ADMIT Hospitalist; ATTEND Physician Assistant
DX: K85.20 Alcohol induced acute pancreatitis without necrosis or infection (principal); F10.20 Alcohol dependence, uncomplicated; I10 Essential (primary) hypertension; K21.9 Gastro-esophageal reflux disease without esophagitis; E78.5 Hyperlipidemia, unspecified; F17.200 Nicotine dependence, unspecified, uncomplicated; Y90.9 Presence of alcohol in blood, level not specified; Z90.49 Acquired absence of other specified parts of digestive tract; Z88.8 Allergy status to other drugs, medicaments and biological substances; Z79.51 Long term (current) use of inhaled steroids; Z79.82 Long term (current) use of aspirin; Z79.899 Other long term (current) drug therapy
CPT/HCPCS: 80048; 80053 ×2; 80061; 82247; 82248; 83690; 83735; 84075; 84100; 84450; 84460; 85025; 96372; 96374; 96375; 96376 ×2; G0378 ×2; J1650; J2272; J2405; J3411 ×2; J3475; J3490 ×2; J7030 ×2; 36415